=== PATIENT | female | born 1985 | race Caucasian/White ===

== ENCOUNTER 2018-09-07 11:19 | Emergency (ER) | payer SELFPAY ==
[2018-09-07] MEDS ORDERED: NA CHLORIDE 0.9% 1,000 ML ONE (12:02)
[2018-09-07 12:18] LABS: Absolute Lymphocytes (CBC) 1.8 K/uL (0.7-4.9); Absolute Monocytes 0.6 K/uL (0.1-1.3); Absolute Neutrophil 4.6 K/uL (1.8-8.0); Lymphocytes % 25.1 % (15.3-44.8); MPV 9.1 fL (7.6-11.3); Monocytes % 8.5 % (3.3-12.3); RBC Red Blood Cell Count 4.58 M/uL (3.86-4.86)
[2018-09-07 12:26] LABS: Potassium 3.4 mmol/L (3.5-5.1)
--- NOTE | 2018-09-07 12:28 | RAD REPORT ---
EXAM DESCRIPTION: Bree Single View09/07/2018 12:13 pm CLINICAL HISTORY: Cough COMPARISON: 2013 FINDINGS: The lungs appear clear of acute infiltrate. The heart is normal size IMPRESSION: No acute abnormalities displayed
--- NOTE | 2018-09-07 13:34 | ER ---
Nurse's Notes [facility] Name: Lydai Pierce Age: 32 yrs Sex: Female : 1985 Arrival Date: 09/07/2018 Time: 11:21 Bed 2 Private MD: Diagnosis: Influenza Type B Presentation: 09/07 11:21 Presenting complaint: Patient states: body aches, fever, L eye pain x 3 days. ss Transition of care: patient was not received from another setting of care. Onset of symptoms was September 04, 2018. Risk Assessment: Do you want to hurt yourself or someone else? Patient reports no desire to harm self or others. Initial Sepsis Screen: Does the patient meet any 2 criteria? No. Patient's initial sepsis screen is negative. Does the patient have a suspected source of infection? No. Patient's initial sepsis screen is negative. Care prior to arrival: Medication(s) given: Tylenol, 1000 mg, IV/ 10 minutes by EMS IV initiated. 20 GA, in the right antecubital area, Glucose check: 133. 11:21 Method Of Arrival: EMS: [facility] 11:21 Acuity: MINDY 3 ss Triage Assessment: 11:35 General: Appears in no apparent distress. uncomfortable, Behavior is cooperative, ch anxious, restless. Pain: Complains of pain in forehead, left jainism, left frontal area, left side of the back of head, left side of forehead, left temporal area, neck, chest, abdomen, pelvis, right arm, left arm, right leg, left leg, back of head, back of neck, back of left arm, back of right arm, posterior chest, buttocks, back of left leg, back of right leg and back Pain currently is 7 out of 10 on a pain scale. Pain began gradually, 4 days ago. EENT: Reports nasal congestion pain when swallowing. Neuro: Level of Consciousness is awake, alert, obeys commands, Oriented to person, place, time, situation. Cardiovascular: Heart tones S1 S2 present Capillary refill < 3 seconds in bilateral fingers toes Clubbing of nail beds is absent Patient's skin is warm and dry. Respiratory: Reports cough that is Airway is patent Respiratory effort is even, unlabored, Breath sounds are clear bilaterally. GI: Abdomen is flat, non-distended. : No signs and/or symptoms were reported regarding the genitourinary system. Derm: Skin is pink, warm \T\ dry. Musculoskeletal: Circulation, motion, and sensation intact. Capillary refill < 3 seconds, in bilateral fingers. toes. Range of motion: intact in all extremities, pt c/o body aches. Historical: - Allergies: 11:33 No Known Allergies; sv - PMHx: 11:33 Anxiety; Depression; sv - Ebola Screening: : No symptoms or risks identified at this time. Screenin:21 Abuse screen: Denies threats or abuse. Denies injuries from another. Nutritional sv screening: No deficits noted. Tuberculosis screening: No symptoms or risk factors identified. Fall Risk None identified. Assessment: 11:43 Reassessment: Patient appears in no apparent distress at this time. No changes from sv previously documented assessment. 13:46 Reassessment: Patient appears in no apparent distress at this time. No changes from sv previously documented assessment. Patient and/or family updated on plan of care and expected duration. Pain level reassessed. Patient is alert, oriented x 3, equal unlabored respirations, skin warm/dry/pink. Vital Signs: 11:21 BP 140 / 94; Pulse 93; Resp 20; Temp 100(O); Pulse Ox 99% on R/A; Weight 63.5 kg; Pain ss 10/10; 12:43 BP 115 / 68; Pulse 88; Resp 16; Pulse Ox 99% ; sv 13:46 BP 112 / 70; Pulse 90; Resp 18; Pulse Ox 99% ; sv ED Course: 11:21 Patient arrived in ED. ss 11:21 Arm band placed on. sv 11:21 Patient has correct armband on for positive identification. Bed in low position. Call sv light in reach. Side rails up X 1. Pulse ox on. NIBP on. Door closed. Lights dimmed. Head of bed elevated. 11:22 Triage completed. ss 11:32 Maryellen Locke RN is Primary Nurse. sv 11:33 Awaiting ED provider evaluation. sv 11:42 Roge Kahn MD is Attending Physician. kdr 11:43 ED physician to see patient. sv 12:11 CXR XRAY In Process Unspecified. EDMS 13:03 Urine collected: clean catch specimen, cloudy, poppy colored. jb1 13:47 No provider procedures requiring assistance completed. IV discontinued, intact, sv bleeding controlled, No redness/swelling at site. Pressure dressing applied. Administered Medications: 11:55 Drug: NS 0.9% 1000 ml Route: IV; Rate: 1 bolus; Site: right antecubital; sv Outcome: 13:33 Discharge ordered by . nhi 13:47 Discharged to home ambulatory. sv 13:47 Condition: stable 13:47 Discharge instructions given to patient, Instructed on discharge instructions, follow up and referral plans. medication usage, Demonstrated understanding of instructions, follow-up care, medications, Prescriptions given X 1. 13:47 Patient left the ED. sv Signatures: Dispatcher [employer] EDMS Maxx Montesinos jb1 Kirsten Burt, SINTIA RN Maryellen Locke RN RN Roge Kahn MD MD kdr Smirch, Shelby, RN RN ss Corrections: (The following items were deleted from the chart) 13:47 13:47 Patient did not have IV access during this emergency room visit. sv sv
--- NOTE | 2018-09-07 13:34 | EDPHYS ---
Physician Documentation [facility] Name: Lydia Pierce Age: 32 yrs Sex: Female : 1985 Arrival Date: 09/07/2018 Time: 11:21 Bed 2 Private MD: ED Physician Roge Kahn HPI: 09/07 11:47 This 32 yrs old Female presents to ER via EMS with complaints of Flu Symptoms.kdr 11:47 Pt has felt poorly for the last four days with "flu" s/s. Temp to 102, MAC weak, hurting kdr all over. Onset: The symptoms/episode began/occurred gradually, 4 day(s) ago. Severity of symptoms: At their worst the symptoms were mild moderate in the emergency department the symptoms are unchanged. The patient has not experienced similar symptoms in the past. The patient has not recently seen a physician. Historical: - Allergies: 11:33 No Known Allergies; sv - PMHx: 11:33 Anxiety; Depression; sv - Ebola Screening: : No symptoms or risks identified at this time. ROS: 11:47 Constitutional: Negative for weight loss but has had fever and chills Eyes: Negative kdr for injury, pain, redness, and discharge, Neck: Negative for injury, pain, and swelling, Cardiovascular: Negative for chest pain, palpitations, and edema, Abdomen/GI: Negative for abdominal pain, nausea, vomiting, diarrhea, and constipation, Back: Negative for injury and pain, : Negative for injury, bleeding, discharge, and swelling, MS/Extremity: Negative for injury and deformity, Skin: Negative for injury, rash, and discoloration, Neuro: Negative for headache, weakness, numbness, tingling, and seizure activity. Psych: Negative for depression, anxiety, suicide ideation, homicidal ideation, and hallucinations, Allergy/Immunology: Negative for hives, rash, and allergies, Endocrine: Negative for neck swelling, polydipsia, polyuria, polyphagia, and marked weight changes, Hematologic/Lymphatic: Negative for swollen nodes, abnormal bleeding, and unusual bruising. 11:47 Respiratory: Positive for cough, Negative for dyspnea on exertion, hemoptysis, orthopnea, pleurisy, shortness of breath, sputum production, wheezing. Exam: 11:47 Constitutional: This is a well developed, well nourished patient who is awake, alert, kdr and in no acute distress. Head/Face: Normocephalic, atraumatic. Eyes: Pupils equal round and reactive to light, extra-ocular motions intact. Lids and lashes normal. Conjunctiva and sclera are non-icteric and not injected. Cornea within normal limits. Periorbital areas with no swelling, redness, or edema. Neck: Trachea midline, no thyromegaly or masses palpated, and no cervical lymphadenopathy. Supple, full range of motion without nuchal rigidity, or vertebral point tenderness. No Meningismus. Chest/axilla: Normal chest wall appearance and motion. Nontender with no deformity. No lesions are appreciated. Cardiovascular: Regular rate and rhythm with a normal S1 and S2. No gallops, murmurs, or rubs. Normal PMI, no JVD. No pulse deficits. Abdomen/GI: Soft, non-tender, with normal bowel sounds. No distension or tympany. No guarding or rebound. No evidence of tenderness throughout. Back: No spinal tenderness. No costovertebral tenderness. Full range of motion. Skin: Warm, dry with normal turgor. Normal color with no rashes, no lesions, and no evidence of cellulitis. MS/ Extremity: Pulses equal, no cyanosis. Neurovascular intact. Full, normal range of motion. Neuro: Awake and alert, GCS 15, oriented to person, place, time, and situation. Cranial nerves II-XII grossly intact. Motor strength 5/5 in all extremities. Sensory grossly intact. Cerebellar exam normal. Normal gait. Psych: Awake, alert, with orientation to person, place and time. Behavior, mood, and affect are within normal limits. 11:47 Respiratory: the patient does not display signs of respiratory distress, Respirations: normal, Breath sounds: rales, rhonchi, are located in both bases. Vital Signs: 11:21 BP 140 / 94; Pulse 93; Resp 20; Temp 100(O); Pulse Ox 99% on R/A; Weight 63.5 kg; Pain ss 10/10; 12:43 BP 115 / 68; Pulse 88; Resp 16; Pulse Ox 99% ; sv 13:46 BP 112 / 70; Pulse 90; Resp 18; Pulse Ox 99% ; sv MDM: 13:33 Patient medically screened. kdr 15:50 Data reviewed: vital signs, nurses notes, lab test result(s), radiologic studies. kdr Counseling: I had a detailed discussion with the patient and/or guardian regarding: the historical points, exam findings, and any diagnostic results supporting the discharge/admit diagnosis, lab results, radiology results, the need for outpatient follow up. 09/07 11:47 Order name: CBC with Diff; Complete Time: 13:30 kdr 09/07 11:47 Order name: Chem 7; Complete Time: 13:30 kdr 09/07 11:47 Order name: Urine Culture kdr 09/07 11:47 Order name: Flu; Complete Time: 13:30 kdr 09/07 11:50 Order name: CXR XRAY; Complete Time: 13:30 kdr 09/07 11:47 Order name: Urine Dipstick-Ancillary (obtain specimen); Complete Time: 13:03 kdr Administered Medications: 11:55 Drug: NS 0.9% 1000 ml Route: IV; Rate: 1 bolus; Site: right antecubital; sv Disposition: 09/07/18 13:33 Discharged to Home. Impression: Influenza Type B. - Condition is Stable. - Discharge Instructions: Influenza, Adult, [id number]. - Prescriptions for Pepcid 20 mg Oral Tablet - take 1 tablet by ORAL route every 12 hours for 5 days; 10 tablet. - Medication Reconciliation Form, Thank You Letter form. - Follow up: Private Physician; When: 2 - 3 days; Reason: If symptoms return, Further diagnostic work-up, Recheck today's complaints, Continuance of care, Re-evaluation by your physician. - Problem is new. - Symptoms have improved. - Notes: You are about one day past the time within which Tamiflu might be utilized. Therefore, the treatment is supportive care only. Please come back if you are feeling worse Signatures: Dispatcher [employer] Maryellen Moreno RN RN Roge Kahn MD MD [facility] Corrections: (The following items were deleted from the chart) 13:47 13:33 09/07/2018 13:33 Discharged to Home. Impression: Influenza Type B. Condition is sv Stable. Forms are Medication Reconciliation Form, Thank You Letter, Antibiotic Education, Prescription Opioid Use. Follow up: Private Physician; When: 2 - 3 days; Reason: If symptoms return, Further diagnostic work-up, Recheck today's complaints, Continuance of care, Re-evaluation by your physician. Problem is new. Symptoms have improved. kdr
== END 2018-09-07 13:47 | disposition home or self-care (01) ==
LOC: ER 11:19
DX: J11.1 Influenza due to unidentified influenza virus with other respiratory manifestations (principal)
CPT/HCPCS: 36415; 71045; 80048; 85025; 87077; 87086; 87088; 87186; 87804; 99284; J7030

== ENCOUNTER 2021-05-02 03:37 | Emergency (ER) | payer SELFPAY ==
--- OUTSIDE RECORDS SUMMARY | 2021-05-02 03:40 | XMS REPORT | Continuity of Care Document ---
:1985 Author Organization [facility] t Address [address] [place] [address] [address] [place] [address] Care Team Providers Name Role Phone PATSY Attending Clinician Unavailable Problems This patient has no known problems. Allergies, Adverse Reactions, Alerts This patient has no known allergies or adverse reactions. Medications This patient has no known medications. Procedures This patient has no known procedures. Encounters Start End Encounter Admission Attending Care Care Encounter Source Date/Time Date/Time Type Type Clinicians Facility Department ID 2019-10-05 2019-10-05 Emergency PATSY [facility] [id number] [address] [place] 00:00:00 00:00:00 [facility] [address] Results This patient has no known results.
--- NOTE | 2021-05-02 05:35 | ER ---
Nurse's Notes [facility] Name: Lydia Pierce Age: 35 yrs Sex: Female : 1985 Arrival Date: 05/02/2021 Time: 03:41 Bed Waiting Private MD: Diagnosis: ED Course: 05/02 03:41 Patient arrived in ED. ja2 05:34 Patient's name was called from ER lobby. No response. Unable to locate patient. Will bb disposition as left without being seen by a provider. Administered Medications: No medications were administered Outcome: 05:35 Patient left the ED. bb Signatures: Teresa Amor RN RN bb Radha Pratt
== END 2021-05-02 05:35 | disposition left against medical advice (07) ==
LOC: ER 03:37
DX: Z02.89 Encounter for other administrative examinations (principal)

== ENCOUNTER 2022-01-10 05:37 | Emergency (ER) | payer SELFPAY ==
--- OUTSIDE RECORDS SUMMARY | 2022-01-10 05:40 | XMS REPORT | Continuity of Care Document ---
:1985 Author Organization [facility] t Address [address] [place] [address] Care Team Providers Name Role Phone Asked, No Pcp Primary Care Physician Unavailable [facility] Attending Clinician Unavailable TRANG GARNER Attending Clinician Unavailable [email or web address] Admitting Clinician Unavailable Payers Payer Name Policy Type Policy Number Effective Date Expiration Date Wednesday HEALTH PLANS [id number] [place] Problems This patient has no known problems. Allergies, Adverse Reactions, Alerts This patient has no known allergies or adverse reactions. Social History Social Habit Start Date Stop Date Quantity Comments Source Tobacco use and 2019-10-05 2019-10-05 Smokeless tobacco [facility]00 non-user Hospital Alcohol intake 2019-10-05 2019-10-05 Ex-drinker [facility] 00:00:00 00:00:00 (finding) Hospital Sex Assigned At [birth year] F [facility] 00:00:00 [facility]:00 Hospital Smoking Status Start Date Stop Date Source Never smoked tobacco [facility] Medications Ordered Filled Start Stop Current Ordering Indication Dosage Frequency Signature Comments Components Source Medication Medication Date Date Medication? Clinician (SIG) Name Name No known No No known Metho di medications 10-[address] 04:33: [facility] l Procedures This patient has no known procedures. Plan of Care Planned Activity Planned Date Details Comments Source Future Scheduled 2022-01-02 Screening for [facility] Test 13:33:50 malignant neoplasm of cervix (procedure) [code = 471283893] Future Scheduled 2022-01-02 [facility]ACCINE [facility] 13:33:50 [code = INFLUENZA VACCINE] Future Scheduled 2022-01-02 HEPATITIS B [facility] Test 13:33:50 VACCINES (1 of 3 - 3-dose series) [code = HEPATITIS B VACCINES (1 of 3 - 3-dose series)] Future Scheduled 2022-01-02 COVID-19 VACCINE [facility] Test 13:33:50 (#1) [code = COVID-19 VACCINE (#1)] Future Scheduled 2022-01-02 Hepatitis C [facility] Test 13:33:50 screening (procedure) [code = 819337806] Encounters Start End Encounter Admission Attending Care Care Encounter Source Date/Time Date/Time Type Type Clinicians Facility Department ID 2022-01-04 2022-01-04 Outpatient [facility] PRIV PRIV [id number] [facility] 00:00:00 00:00:00 artz_A [id number] Medica l 2022-01-01 2022-01-01 Outpatient [facility] PRIV PRIV [id number] [facility] 00:00:00 00:00:00 artz_A [id number] Medica l 2019-10-05 2019-10-05 Emergency [facility], [place] [id number] [address] [place] 00:00:00 00:00:00 [facility] [address] Results This patient has no known results.
--- NOTE | 2022-01-10 06:27 | EDPHYS ---
Physician Documentation [facility] Name: Lydia Pierce Age: 36 yrs Sex: Female : 1985 Arrival Date: 01/10/2022 Time: 05:40 Bed 7 Private MD: ED Physician Wayne Hughes HPI: 01/10 06:04 This 36 yrs old Female presents to ER via Unassigned with complaints of chest pain. rn 06:04 The patient or guardian reports chest pain that is located primarily in the anterior rn chest wall, left. The pain does not radiate. Associated signs and symptoms: Pertinent positives: nausea, Pertinent negatives: abdominal pain, shortness of breath, syncope, vomiting. The chest pain is described as aching. Duration: The patient or guardian reports a single episode, that is now resolved. Modifying factors: The symptoms are alleviated by nothing. the symptoms are aggravated by nothing. Severity of pain: At its worst the pain was mild in the emergency department the pain has resolved. The patient has not experienced similar symptoms in the past. The patient has not recently seen a physician. 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 No hx of cardiac problems, ECG normal by EMS. Symptoms have resolved without intervention. Pt states told by police that they found drugs in her vehicle and she is not sure where that came from. Pt denies doing drugs [employer]. . Historical: - Allergies: 06:11 No Known Allergies; ll3 - PMHx: 06:11 Anxiety; Depression; ll3 - Immunization history:: Client reports having NOT received the Covid vaccine. - Social history:: Smoking status: Patient reports the use of cigarette tobacco products. - Family history:: not pertinent. - Hospitalizations: : No recent hospitalization is reported. ROS: 06:04 Constitutional: Negative for fever, chills, and weight loss, Eyes: Negative for injury, rn pain, redness, and discharge, Neck: Negative for injury, pain, and swelling, Cardiovascular: Negative for edema Respiratory: Negative for shortness of breath, cough, wheezing, and pleuritic chest pain, Abdomen/GI: Negative for abdominal pain, diarrhea, and constipation, Back: Negative for injury and pain, MS/Extremity: Negative for injury and deformity, Skin: Negative for injury, rash, and discoloration, Neuro: Negative for headache, weakness, numbness, tingling, and seizure. Exam: 06:04 Constitutional: This is a well developed, well nourished patient who is awake, alert, rn and in no acute distress. Head/Face: Normocephalic, atraumatic. Eyes: Pupils equal round and reactive to light, extra-ocular motions intact. Lids and lashes normal. Conjunctiva and sclera are non-icteric and not injected. Cornea within normal limits. Periorbital areas with no swelling, redness, or edema. ENT: dry MM Cardiovascular: Regular rate and rhythm. No pulse deficits. Respiratory: Speaking full sentences, unlabored. No increased work of breathing, no retractions or nasal flaring. Abdomen/GI: Soft, non-tender Skin: Warm, dry, no cellulitis MS/ Extremity: Pulses equal, no cyanosis. Neurovascular intact. Full, normal range of motion. Equal circumference. Neuro: Awake and alert, GCS 15, oriented to person, place, time, and situation. Cranial nerves II-XII grossly intact. Motor strength 5/5 in all extremities. Sensory grossly intact. Cerebellar exam normal. 06:20 ECG was reviewed by the Attending Physician. rn Vital Signs: 06:05 BP 158 / 116; Pulse 89; Resp 16; Temp 98.0(O); Pulse Ox 100% on R/A; ll3 06:25 BP 159 / 108; Pulse 77; Resp 16; Pulse Ox 100% on R/A; ll3 MDM: 05:40 Patient medically screened. rn 06:22 Differential diagnosis: acute myocardial infarction, acute pericarditis, anxiety, rn costochondritis, stress reaction, drug reaction. Data reviewed: vital signs, nurses notes, EKG, and as a result, I will discharge patient. Counseling: I had a detailed discussion with the patient and/or guardian regarding: the historical points, exam findings, and any diagnostic results supporting the discharge/admit diagnosis, the need for outpatient follow up, to return to the emergency department if symptoms worsen or persist or if there are any questions or concerns that arise at home. Response to treatment: the patient's symptoms have markedly improved after treatment, and as a result, I will discharge patient. Special discussion: I discussed with the patient/guardian in detail that at this point there is no indication for admission to the hospital. It is understood, however, that if the symptoms persist or worsen the patient needs to return immediately for re-evaluation. 01/10 05:40 Order name: EKG; Complete Time: 05:40 rn 01/10 05:40 Order name: EKG - Nurse/Tech; Complete Time: 06:21 rn 01/10 05:42 Order name: PO challenge; Complete Time: 06:21 rn EC:20 Rate is 76 beats/min. Rhythm is regular. QRS [place] is Normal. [place] interval is normal. QRS rn interval is normal. QT interval is normal. No Q waves. T waves are Normal. No ST changes noted. Clinical impression: Normal ECG. Interpreted by me. Reviewed by me. 

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
[2022-01-10 09:40] VITALS: TEMP 98; O2SAT 100
[2022-01-10 09:42] VITALS: BP 159/108
--- NOTE | 2022-01-12 05:41 | EKG ---
Test Date: 2022-01-10 Test Time: 06:21:03 Lot Associate: SARA MEASUREMENT RESULTS: Intervals: Rate: 76 SD: 126 QRSD: 82 QT: 380 QTc: 427 [place]: P: 62 SD: 126 QRS: 48 T: 46 INTERPRETIVE STATEMENTS: Normal sinus rhythm Normal ECG No previous ECG available for comparison Electronically Signed On 01-12-22 05:38:32 CDT by Matty Anthony
== END 2022-01-10 06:53 | disposition home or self-care (01) ==
LOC: ER 05:37
DX: R07.89 Other chest pain (principal); F32.A Depression, unspecified; Z72.0 Tobacco use
CPT/HCPCS: 93005; 99283